=== PATIENT | male | born 1990 | race Hispanic/Latino ===

== ENCOUNTER 2020-10-22 15:01 | Inpatient (IN) | payer BC ==
[2020-10-22 20:07] LABS: Absolute Lymphocytes (CBC) 0.9 K/uL (0.7-4.9); Basophils % 0.2 % (0-1.3); Hematocrit 44.2 % (39.6-49.0); Lymphocytes % 12.6 % (15.3-44.8); MPV 7.8 fL (7.6-11.3); RBC Red Blood Cell Count 4.74 M/uL (4.33-5.43)
[2020-10-22] MEDS ORDERED: METHYLPREDNISOLONE 125 MG INJ ONE (20:13)
--- NOTE | 2020-10-22 20:13 | RAD REPORT ---
EXAM DESCRIPTION: RAD - Chest Single View - 10/22/2020 8:03 pm CLINICAL HISTORY: DYSPNEA COMPARISON: CHEST SINGLE VIEW dated 01/03/2013 FINDINGS: Severe widespread bilateral airspace disease The heart size is within normal limits.No acu te osseous abnormality. No significant pleural effusions or pneumothorax. IMPRESSION: Severe bilateral airspace disease concerning for multifocal pneumonia, including Covid-1 9.
[2020-10-22 20:21] LABS: Protime INR 1.33
--- NOTE | 2020-10-22 20:59 | ER ---
Nurse's Notes [facility] Name: Germán Francisco III Age: 29 yrs Sex: Male : 1990 Arrival Date: 10/22/2020 Time: 15:05 Bed 18 Private MD: Diagnosis: Coronavirus infection, unspecified;Hypoxia;Viral pneumonia, unspecified Presentation: 10/22 15:28 Chief complaint: Patient states: Covid positive for 8 days. Symptoms for about 2 weeks. ll1 Started having SOB and bad coughing fits for 3 days. No fever. + diarrhea. Coronavirus screen: Client denies travel out of the [place] in the last 14 days. cough unrelated to allergies, difficulty breathing, shortness of breath, Client presents with at least one sign or symptom that may indicate coronavirus-19. Standard/surgical mask placed on the client. Ebola Screen: Patient denies travel to an Ebola-affected area in the 21 days before illness onset. No symptoms or risks identified at this time. Initial Sepsis Screen: Does the patient meet any 2 criteria? No. Patient's initial sepsis screen is negative. Does the patient have a suspected source of infection? Yes: Productive cough/pneumonia. Risk Assessment: Do you want to hurt yourself or someone else? Patient reports no desire to harm self or others. Onset of symptoms was October 09, 2020. 15:28 Method Of Arrival: Ambulatory [facility] 15:28 Acuity: SHEILA 3 ll1 Historical: - Allergies: 15:30 No Known Allergies; ll1 - PMHx: 15:30 None; ll1 - PSHx: 15:30 None; ll1 - Immunization history:: Client reports having NOT received the Covid vaccine. Flu vaccine is not up to date. - Social history:: Smoking status: Patient denies any tobacco usage or history of. Assessment: 20:05 Reassessment: patient reportedly dropped to 70% o2 sat upon walking to room per ER ms4 tech. patient placed on 4 L nc. patient reports he feels extremely short of breath when ambulating. 21:54 Reassessment: Reilly OPTO MECHANICAL TECHNICIAN aware of Lactic and Procal labs. No orders received at this time. kg Will continue to monitor. . Vital Signs: 15:28 BP 131 / 83; Pulse 80; Resp 20; Temp 97.0; Pulse Ox 95% on R/A; Weight 104.33 kg; ll1 Height 5 ft. 9 in. (175.26 cm); Pain 0/10; 20:05 BP 112 / 71; Pulse 94; Resp 20; Pulse Ox 96% 4 lpm ; Pain 0/10; ms4 15:28 Body Mass Index 33.96 (104.33 kg, 175.26 cm) ll1 ED Course: 15:05 Patient arrived in ED. ds1 15:30 Triage completed. ll1 15:30 Arm band placed on. ll1 19:14 Nayeli Grace FNP-C is PHCP. kb 19:14 Vern Johnson MD is Attending Physician. kb 19:58 BMP Sent. ms4 19:58 Blood Culture Adult (2) Sent. ms4 19:58 C-Reactive Protein Sent. ms4 19:58 CBC with Diff Sent. ms4 19:58 D-Dimer Sent. ms4 20:00 Inserted saline lock: 22 gauge in right antecubital area, using aseptic technique. oe Blood collected. 20:03 Chest Single View XRAY In Process Unspecified. EDMS 20:14 Patient has correct armband on for positive identification. Bed in low position. Call mh5 light in reach. Side rails up X 1. bus driver/monitor on. Pulse ox on. NIBP on. 20:58 Sky Mclaughlin MD is Hospitalizing Provider. kb 21:06 Kenyatta Vizcarra, RN is Primary Nurse. kg Administered Medications: 19:57 Drug: SOLU-Medrol (methylPrednisoLONE) 125 mg Route: IVP; Site: right antecubital; ms4 Outcome: 20:58 Decision to Hospitalize by Provider. kb 10/26 15:48 Patient left the ED. iw Signatures: Dispatcher [employer] EDMS Nayeli Grace FNP-C FNP-Viridiana Austin ds1 Angela Man, ASYA SKY Ronnell Tracey [facility] Marlen Sarmiento RN RN ll1 Kenyatta Vizcarra, RN ASYA kg Eloise Biggs RN RN ms4
--- NOTE | 2020-10-22 20:59 | EDPHYS ---
Physician Documentation [facility] Name: Germán Francisco III Age: 29 yrs Sex: Male : 1990 Arrival Date: 10/22/2020 Time: 15:05 Bed 18 Private MD: ED Physician Vern Johnson HPI: 10/22 20:09 This 29 yrs old Male presents to ER via Ambulatory with complaints of Chest kb Pain, Shortness Of Breath - Covid +. 20:09 The patient or guardian reports cough, that is intermittent, described as moderate, kb with no sputum. Onset: The symptoms/episode began/occurred yesterday. Severity of symptoms: At their worst the symptoms were moderate, in the emergency department the symptoms are unchanged. Modifying factors: The symptoms are alleviated by nothing, the symptoms are aggravated by nothing. Associated signs and symptoms: The patient has no apparent associated signs or symptoms. The patient has not experienced similar symptoms in the past. The patient has not recently seen a physician. Cough congestion approximately 10 days ago, was tested positive with Covid on Tuesday last week. States his symptoms have been mild up until yesterday. Comes in complaining of increased shortness of breath and coughing fits.. Historical: - Allergies: 15:30 No Known Allergies; ll1 - PMHx: 15:30 None; ll1 - PSHx: 15:30 None; ll1 - Immunization history:: Client reports having NOT received the Covid vaccine. Flu vaccine is not up to date. - Social history:: Smoking status: Patient denies any tobacco usage or history of. ROS: 20:09 Constitutional: Negative for fever, chills, and weight loss. kb 20:09 Respiratory: Positive for cough, with no reported sputum, dyspnea on exertion, shortness of breath, Negative for hemoptysis, orthopnea, pleurisy, wheezing. 20:09 All other systems are negative. Exam: 20:08 Constitutional: This is a well developed, well nourished patient who is awake, alert, kb and in no acute distress. Head/Face: Normocephalic, atraumatic. ENT: Moist Mucous membranes Cardiovascular: Regular rate and rhythm with a normal S1 and S2. No gallops, murmurs, or rubs. No pulse deficits. Abdomen/GI: Soft, non-tender. No distention Skin: Warm, dry with normal turgor. Normal color. MS/ Extremity: Pulses equal, no cyanosis. Neurovascular intact. Full, normal range of motion. Neuro: Awake and alert, GCS 15, oriented to person, place, time, and situation. Moves all extremities. Normal gait. Psych: Awake, alert, with orientation to person, place and time. Behavior, mood, and affect are within normal limits. 20:08 Respiratory: mild respiratory distress is noted, Respirations: tachypnea, Breath sounds: are clear throughout. Vital Signs: 15:28 BP 131 / 83; Pulse 80; Resp 20; Temp 97.0; Pulse Ox 95% on R/A; Weight 104.33 kg; ll1 Height 5 ft. 9 in. (175.26 cm); Pain 0/10; 20:05 BP 112 / 71; Pulse 94; Resp 20; Pulse Ox 96% 4 lpm ; Pain 0/10; ms4 15:28 Body Mass Index 33.96 (104.33 kg, 175.26 cm) ll1 MDM: 19:14 Patient medically screened. kb 19:45 Data reviewed: vital signs, nurses notes. Data interpreted: Pulse oximetry: on room air kb is 71 %. Interpretation: hypoxia. Plan: O2 by NC applied. ED course: o2 sat increased to 94% on 4L O2 via NC. 19:49 Counseling: I had a detailed discussion with the patient and/or guardian regarding: the kb historical points, exam findings, and any diagnostic results supporting the discharge/admit diagnosis, lab results, radiology results, the need for further work-up and treatment in the hospital. 19:49 Physician consultation: Reilly MIJARES was contacted at 19:49, regarding admission, kb and will see patient in ED. 10/22 19:23 Order name: BMP kb 10/22 19:23 Order name: Blood Culture Adult (2) kb 10/22 19:23 Order name: C-Reactive Protein kb 10/22 19:23 Order name: CBC with Diff kb 10/22 19:23 Order name: D-Dimer kb 10/22 19:23 Order name: Ferritin; Complete Time: 23:58 kb 10/22 19:23 Order name: LFT's; Complete Time: 23:58 kb 10/22 19:23 Order name: Lactate; Complete Time: 20:39 kb 04 19:23 Order name: Lipase; Complete Time: 23:58 kb 10/22 19:23 Order name: PT-INR; Complete Time: 20:30 kb 10/22 19:23 Order name: Procalcitonin; Complete Time: 21:38 kb 10/22 19:23 Order name: Ptt, Activated; Complete Time: 20:30 kb 10/22 19:23 Order name: Troponin (emerg Dept Use Only); Complete Time: 23:58 kb 10/22 19:23 Order name: Basic Metabolic Panel; Complete Time: 23:58 EDMS 10/22 19:23 Order name: Blood Culture; Complete Time: 10:54 EDMS 10/22 19:23 Order name: C-Reactive Protein; Complete Time: 23:58 EDMS 10/22 19:23 Order name: CBC with Automated Diff; Complete Time: 20:16 EDMS 10/22 19:23 Order name: D-Dimer; Complete Time: 20:30 EDMS 04 23:34 Order name: Lactate Sepsis 2 HR Follow-up; Complete Time: 23:37 EDMS 08/05 06:06 Order name: CBC with Automated Diff; Complete Time: 20:49 EDMS 08/05 06:28 Order name: Comprehensive Metabolic Panel; Complete Time: 20:49 EDMS 08/05 06:28 Order name: C-Reactive Protein; Complete Time: 20:49 EDMS 08/05 06:28 Order name: Magnesium; Complete Time: 20:49 EDMS 08/05 06:28 Order name: Ferritin; Complete Time: 20:49 EDMS 08/05 06:38 Order name: D-Dimer; Complete Time: 20:49 EDMS 08/05 13:11 Order name: Manual Differential; Complete Time: 20:49 EDMS 08/06 05:40 Order name: CBC with Automated Diff; Complete Time: 10:54 EDMS 08/06 05:54 Order name: Comprehensive Metabolic Panel; Complete Time: 10:54 EDMS 08/06 05:54 Order name: C-Reactive Protein; Complete Time: 10:54 EDMS 08/06 05:54 Order name: Magnesium; Complete Time: 10:54 EDMS 10/22 19:23 Order name: EKG; Complete Time: 19:24 kb 10/22 19:23 Order name: Cardiac monitoring; Complete Time: 19:58 kb 10/22 19:23 Order name: Droplet/Contact Precautions; Complete Time: 19:58 kb 10/22 19:23 Order name: EKG - Nurse/Tech; Complete Time: 19:58 kb 10/22 19:23 Order name: IV Start; Complete Time: 19:58 kb 10/22 19:23 Order name: Labs collected and sent; Complete Time: 19:58 kb 10/22 19:23 Order name: O2 Per Protocol; Complete Time: 19:58 kb 10/22 19:23 Order name: O2 Sat Monitoring; Complete Time: 19:58 kb 10/22 19:23 Order name: Chest Single View XRAY; Complete Time: 20:16 kb 10/22 20:31 Order name: CT Chest For PE Angio kb 10/23 11:51 Order name: CT; Complete Time: 20:49 EDMS 10/24 05:54 Order name: Ferritin; Complete Time: 10:54 EDMS 10/24 08:36 Order name: D-Dimer; Complete Time: 10:54 EDMS 10/25 06:09 Order name: CBC with Automated Diff; Complete Time: 10:54 EDMS 07 06:17 Order name: D-Dimer; Complete Time: 10:54 EDMS 07 06:28 Order name: Comprehensive Metabolic Panel; Complete Time: 10:54 EDMS 07 06:28 Order name: Magnesium; Complete Time: 10:54 EDMS 10/25 06:28 Order name: Ferritin; Complete Time: 10:54 EDMS 10/25 06:29 Order name: C-Reactive Protein; Complete Time: 10:54 EDMS 08 05:55 Order name: CBC without Diff; Complete Time: 09:37 EDMS 10/26 06:18 Order name: Comprehensive Metabolic Panel; Complete Time: 09:37 EDMS 10/26 06:18 Order name: C-Reactive Protein; Complete Time: 09:37 EDMS 10/26 06:18 Order name: Ferritin; Complete Time: 09:37 EDMS 10/26 11:10 Order name: US; Complete Time: 11:17 EDMS Administered Medications: 19:57 Drug: SOLU-Medrol (methylPrednisoLONE) 125 mg Route: IVP; Site: right antecubital; ms4 Disposition: 10/24 22:47 Co-signature as Attending Physician, Vern Johnson MD. pkl Disposition Summary: 10/22/20 20:58 Hospitalization Ordered Hospitalization Status: Inpatient Admission kb Provider: Sky Mclaughlin Condition: Fair kb Problem: new kb Symptoms: are unchanged kb Bed/Room Type: Standard kb Location: [facility] ER HOLD(10/22/20 23:46) cg Room Assignment: ERHOLD-(10/22/20 23:46) cg Diagnosis - Coronavirus infection, unspecified kb - Hypoxia kb - Viral pneumonia, unspecified kb Forms: - Medication Reconciliation Form kb - SBAR form kb Signatures: Dispatcher [employer] EDAZ Nayeli Grace, COOLER MAN-C COOLER MAN-Vern Garcia MD MD pkl Reilly Cantu COOLER MAN-C COOLER MAN-Cla1 Della Ledbetter, RN RN cg Marlen Sarmiento RN RN ll1 Eloise Biggs RN RN ms4 Corrections: (The following items were deleted from the chart) 10/22 20:03 19:15 Chest Pa And Lat (2 Views)+RAD.RAD.BRZ ordered. EDAZ EDMS 23:46 20:58 Telemetry/MedSurg (Inpatient) kb cg 23:46 20:58 kb cg 23:46 23:46 cg cg
--- NOTE | 2020-10-22 22:25 | P.HP ---
Certification for Inpatient Patient admitted to: Inpatient With expected LOS: >2 Midnights Patient will require the following post-hospital care: None Practitioner: I am a practitioner with admitting privileges, knowledge of patient current condition, hospital course, and medical plan of care. Services: Services provided to patient in accordance with Admission requirements found in Title 42 Section 412.3 of the Code of Federal Regulations Patient History Date of Service: 10/22/20 Primary Care Provider: None Reason for admission: COVID-19 pneumonia History of Present Illness: 29-year-old male presents the emergency department for shortness of breath. Patient reports testing positive for Covid on 10/14/2020 with pr ogressive shortness of breath since then. Patient was evaluated in the emergency department, labs were significant for white blood cell count 7 D-dimer 814 procalcitonin 0.8 lactic acid 2.6, patient was hypoxic on room air saturating between 70s and 80s, patient nonvaccinated. Patient tolerating nasal cannula at 2 L well this time, ED provider wishes to admit for further evaluation and management of COVID-19 pneumonia with hypoxia. - Past Medical/Surgical History -: None -: None Psychosocial/ Personal History: Lives with and children - Family History Family History: Reviewed- Non-Contributory - Social History Smoking Status: Never smoker Alcohol use: Yes CD- Drugs: No Caffeine use: Yes Place of Residence: Home Review of Systems General: Fever, Chills, Weakness, Malaise Respiratory: Cough, Dry, Shortness of Breath Physical Examination - Physical Exam General: Alert, In no apparent distress, Oriented x3 HEENT: Atraumatic, PERRLA, Mucous membr. moist/pink, EOMI, Sclerae nonicteric Neck: Supple, 2+ carotid pulse no bruit, No LAD, Without JVD or thyroid abnormality Respiratory: Normal air movement, Diminished Cardiovascular: Regular rate/rhythm, Normal S1 S2 Gastrointestinal: Normal bowel sounds, No tenderness Musculoskeletal: No tenderness Integumentary: No rashes Neurological: Normal gait, Normal speech, Normal strength at 5/5 x4 extr, Normal tone, Normal affect Lymphatics: No axilla or inguinal lymphadenopathy - Studies Laboratory Data (last 24 hrs) 10/22/20 19:50: PT 15.3 H, INR 1.33, APTT 30.8 10/22/20 19:50: WBC 7.00, Hgb 14.6, Hct 44.2, Plt Count 450 H Assessment and Plan - Plan Assessment: Acute hypoxic respiratory failure secondary to COVID-19 pneumonia Plan: Acute hypoxic respiratory failure secondary to COVID-19 pneumonia: Continue with IV steroids, oral supplements, supplemental oxygen as needed, pulmonology consulted. Daily room air saturations. Patient with significant pneumonia on chest x-ray will likely require multiple days of hospitalization. Appreciate further input from pulmonology. Trend CRP/ferritin levels. DVT PPX: Lovenox Code status: Full Discharge Plan: Home Plan to discharge in: Greater than 2 days - Advance Directives Does patient have a Living Will: No Does patient have a Durable POA for Healthcare: No - Code Status/Comfort Care Code Status Assessed: Yes (Full code) Critical Care: No Time Spent Managing Pts Care (In Minutes): 55
[2020-10-22 23:12] LABS: ALT/SGPT 188 U/L (12-78); AST/SGOT 107 U/L (15-37); Alkaline Phosphatase 232 U/L (45-117); BUN Blood Urea Nitrogen 11 mg/dL (7-18); Bicarbonate 25 mmol/L (21-32); Bilirubin Direct 0.1 mg/dL (0-0.2); Bilirubin Total 0.4 mg/dL (0.2-1.0); Glucose Level 99 mg/dL (74-106); Lipase 169 U/L (73-393); Potassium 4.5 mmol/L (3.5-5.1); Protein, Total 8.4 g/dL (6.4-8.2); Sodium Level 138 mmol/L (136-145); Troponin (Emerg Dept Use Only) < 0.02 ng/mL (0.0-0.045)
[2020-10-22 23:53] LABS: Ferritin 2373.4 ng/mL (26-388)
[2020-10-23 00:25] VITALS: BMI 34.0
[2020-10-23] MEDS ORDERED: MELATONIN 5 MG TABLET PO PRN (01:42)
[2020-10-23] MEDS ORDERED: ONDANSETRON 4 MG/2 ML VIAL IV PRN (01:42)
[2020-10-23] MEDS ORDERED: ACETAMINOPHEN 500 MG TAB PO PRN (01:42)
[2020-10-23] MEDS ORDERED: BENZONATATE 100 MG CAP PO PRN (01:42)
[2020-10-23 06:00] LABS: Absolute Lymphocytes (CBC) 0.7 K/uL (0.7-4.9); Basophils % 0.2 % (0-1.3); Hematocrit 39.4 % (39.6-49.0); Lymphocytes % 16.5 % (15.3-44.8); MPV 7.7 fL (7.6-11.3); RBC Red Blood Cell Count 4.27 M/uL (4.33-5.43)
[2020-10-23 06:28] LABS: ALT/SGPT 147 U/L (12-78); AST/SGOT 74 U/L (15-37); Albumin 2.6 g/dL (3.4-5.0); Alkaline Phosphatase 216 U/L (45-117); BUN Blood Urea Nitrogen 16 mg/dL (7-18); Bicarbonate 24 mmol/L (21-32); Bilirubin Total 0.3 mg/dL (0.2-1.0); Ferritin 1832.1 ng/mL (26-388); Glucose Level 127 mg/dL (74-106); Magnesium 1.9 mg/dL (1.8-2.4); Potassium 4.3 mmol/L (3.5-5.1); Protein, Total 7.7 g/dL (6.4-8.2); Sodium Level 138 mmol/L (136-145)
[2020-10-23] MEDS ORDERED: BENZONATATE 100 MG CAP PO ONE (06:38)
--- NOTE | 2020-10-23 06:49 | P.PN ---
Subjective Date of Service: 10/23/20 Primary Care Provider: None Chief Complaint: COVID-19 pneumonia Subjective: Improving (feeling a little better since placed on O2, hasnt ambulated much.) Review of Systems 10-point ROS is otherwise unremarkable Physical Examination - Vital Signs Temperature: 98.7 F Blood Pressure: 122/77 Pulse: 64 Respirations: 26 Pulse Ox (%): 93 - Studies Laboratory Data (last 24 hrs) 10/22/20 19:50: PT 15.3 H, INR 1.33, APTT 30.8 10/22/20 19:50: WBC 7.00, Hgb 14.6, Hct 44.2, Plt Count 450 H 10/22/20 19:50: Sodium 138, Potassium 4.5, BUN 11, Creatinine 0.96, Glucose 99, Total Bilirubin 0.4, AST 107 H, ALT 188 H, Alkaline Phosphatase 232 H, Lipase 169 Assessment & Plan Physician Review Additional Text: Physical Exam General: Alert, In no apparent distress, Oriented x3 HEENT: normal conjunctiva, sclera anicteric Respiratory: slightly labored respirations on 4L NC Cardiovascular: Regular rate/rhythm, no edema Gastrointestinal: soft, nontender, nondistended Integumentary: No rashes Assessment and Plan Acute hypoxic respiratory failure secondary to COVID-19 pneumonia continue steroids, oral supplements, supplemental oxygen pulm consulted daily room air sats significant pneumonia on CXR CTA with small filling defect but do not suspect it is due to true PE wean O2 as tolerated trend CRP/ferritin - significantly elevated VTE: lovenox possible dc home in next 1-2 days on home O2 Time Spent Managing Pts Care (In Minutes): 35
[2020-10-23] MEDS: ASPIRIN EC 81 MG TAB PO SCH (10:22)
[2020-10-23] MEDS: METHYLPREDNISOLONE 40 MG INJ IV SCH ×3 (10:22→21:00)
[2020-10-23] MEDS: ZINC SULFATE 220 MG CAP PO SCH (10:23)
[2020-10-23] MEDS: THIAMINE HCL 100 MG TABLET PO SCH (10:23)
[2020-10-23] MEDS: ASCORBIC ACID 500 MG TABLET PO SCH ×4 (10:23→21:01)
[2020-10-23] MEDS: VITAMIN D 1000 UNIT TAB PO SCH (10:23)
[2020-10-23] MEDS: ENOXAPARIN 40 MG/0.4 ML SQ SCH (10:23)
[2020-10-23] MEDS: IVERMECTIN 3 MG TABLET PO SCH (10:23)
[2020-10-23] MEDS ORDERED: METHYLPREDNISOLONE 125 MG INJ ONE ×3 (10:30→21:14)
[2020-10-23] MEDS ORDERED: ZINC SULFATE 220 MG CAP ONE (10:30)
[2020-10-23] MEDS ORDERED: THIAMINE HCL 100 MG TABLET ONE (10:30)
[2020-10-23] MEDS ORDERED: ASPIRIN EC 81 MG TAB PO ONE (10:30)
[2020-10-23] MEDS ORDERED: ASCORBIC ACID 500 MG TABLET ONE ×4 (10:31→21:15)
[2020-10-23] MEDS ORDERED: ENOXAPARIN 40 MG/0.4 ML SQ ONE (10:31)
[2020-10-23] MEDS ORDERED: VITAMIN D 1000 UNIT TAB ONE (10:31)
--- NOTE | 2020-10-23 11:51 | RAD REPORT ---
EXAM DESCRIPTION: CT Angiography Chest With Intravenous Contrast CLINICAL HISTORY: The patient is 29 years old and is Male; SOB TECHNIQUE: Axial computed tomographic angiography images of the chest with intravenous contrast. T his CT exam was performed using one or more of the following dose reduction techniques: automated e xposure control, adjustment of the mA and/or kV according to patient size, and/or use of iterative re construction technique. MIP reconstructed images were created and reviewed. Oblique reformatted images were created and reviewed. DLP: 545 mGy*cm COMPARISON: Chest radiograph of the same day. FINDINGS: PULMONARY ARTERIES: Unremarkable. No pulmonary embolism. AORTA: No acute findings. No thoracic aortic aneurysm. LUNGS: Advanced bilateral groundglass opacities with bilateral lower lobe consolidations. Interlob ular septal thickening. PLEURAL SPACE: Unremarkable. No significant effusion. No pneumothorax. HEART: No cardiomegaly. No significant pericardial effusion. No evidence of RV dysfunction. BONES/JOINTS: No acute fracture. No dislocation. SOFT TISSUES: Unremarkable. LYMPH NODES: Bihilar lymphadenopathy. Mildly prominent prevascular lymph nodes. IMPRESSION: 1. No pulmonary embolism. 2. Commonly reported imaging features of COVID-19 pneumonia are present. Other processes such as in fluenza pneumonia and organizing pneumonia, as can be seen with drug toxicity and connective tissue d isease, can cause similar imaging pattern. PneTyp. 3. Bihilar and mediastinal lymphadenopathy, likely reactive. Electronically signed by: Flip Gaxiola DO 10/22/2020 11:26 PM CDT Due to temporary technical issues with the PACS/Fluency reporting system, reports are being signed by the in house radiologist without review as a courtesy to ensure prompt reporting. The interpreting r adiologist is fully responsible for the content of the report.
[2020-10-23 13:10] LABS: Blood Morphology Comment NOT SEEN (NOT SEEN); Platelet Estimate ADEQ
--- NOTE | 2020-10-23 14:41 | P.CNS ---
Primary Care Provider: None Chief Complaint: COVID-19 pneumonia Allergies No Known Allergies Allergy (Unverified 10/23/20 01:42) Home Medications: NK [No Home Meds] 10/23/20 - Past Medical/Surgical History Diabetic: No -: None -: None Psychosocial/ Personal History: Lives with and children - Social History Alcohol use: Yes CD- Drugs: No Caffeine use: Yes Place of Residence: Home Physical Examination Temp Pulse Resp BP Pulse Ox 98.7 F 64 26 H 122/77 93 10/23/20 14:37 10/23/20 14:37 10/23/20 14:37 10/23/20 14:37 10/23/20 14:37 Laboratory Data (last 24 hrs) 10/22/20 19:50: PT 15.3 H, INR 1.33, APTT 30.8 10/22/20 19:50: WBC 7.00, Hgb 14.6, Hct 44.2, Plt Count 450 H 10/22/20 19:50: Sodium 138, Potassium 4.5, BUN 11, Creatinine 0.96, Glucose 99, Total Bilirubin 0.4, AST 107 H, ALT 188 H, Alkaline Phosphatase 232 H, Lipase 169
--- NOTE | 2020-10-23 14:45 | P.CNS ---
Date of Consult: 10/23/20 (pt agred to TV) Reason for Consult: REsp failure from COVID Primary Care Provider: None Chief Complaint: COVID-19 pneumonia History of Present Illness: AGe 29 aw resp failure from COVID. Hypoxic onnasal cannula O2 Allergies No Known Allergies Allergy (Unverified 10/23/20 01:42) Home Medications: NK [No Home Meds] 10/23/20 - Past Medical/Surgical History Diabetic: No -: None -: None Psychosocial/ Personal History: Lives with and children - Social History Alcohol use: Yes CD- Drugs: No Caffeine use: Yes Place of Residence: Home Review of Systems General: Weakness Respiratory: Shortness of Breath Physical Examination Temp Pulse Resp BP Pulse Ox 98.7 F 64 26 H 122/77 93 10/23/20 14:37 10/23/20 14:37 10/23/20 14:37 10/23/20 14:37 10/23/20 14:37 General: Alert, Cooperative, Mild distress Laboratory Data (last 24 hrs) 10/22/20 19:50: PT 15.3 H, INR 1.33, APTT 30.8 10/22/20 19:50: WBC 7.00, Hgb 14.6, Hct 44.2, Plt Count 450 H 10/22/20 19:50: Sodium 138, Potassium 4.5, BUN 11, Creatinine 0.96, Glucose 99, Total Bilirubin 0.4, AST 107 H, ALT 188 H, Alkaline Phosphatase 232 H, Lipase 169 - Problems (1) Pneumonia due to COVID-19 virus Current Visit: Yes Status: Acute Plan: AGe 29 AW resp failure from COVID/CT rev/ LAbs reviewed/ NC/ Doesnot qualify for Barcitnib/
[2020-10-23] MEDS ORDERED: ACETAMINOPHEN 500 MG TAB ONE (17:52)
[2020-10-24 05:22] LABS: Absolute Lymphocytes (CBC) 1.2 K/uL (0.7-4.9); Basophils % 0.1 % (0-1.3); Hematocrit 39.9 % (39.6-49.0); Lymphocytes % 10.7 % (15.3-44.8); MPV 8.3 fL (7.6-11.3)
[2020-10-24 05:54] LABS: ALT/SGPT 235 U/L (12-78); AST/SGOT 140 U/L (15-37); Albumin 2.7 g/dL (3.4-5.0); Alkaline Phosphatase 216 U/L (45-117); BUN Blood Urea Nitrogen 17 mg/dL (7-18); Bicarbonate 26 mmol/L (21-32); Bilirubin Total 0.3 mg/dL (0.2-1.0); Ferritin 1863.3 ng/mL (26-388); Glucose Level 137 mg/dL (74-106); Magnesium 1.8 mg/dL (1.8-2.4); Potassium 4.2 mmol/L (3.5-5.1); Protein, Total 7.5 g/dL (6.4-8.2); Sodium Level 138 mmol/L (136-145)
--- NOTE | 2020-10-24 07:23 | P.PN ---
Subjective Date of Service: 10/24/20 Primary Care Provider: None Chief Complaint: COVID-19 pneumonia Subjective: No new changes (feeling slightly better, on 4L throughout day yesterday, placed on 15L overnight. 92-96% on 15L . appetite ok. hypoxic/dyspneic with minimal movement) Review of Systems 10-point ROS is otherwise unremarkable Physical Examination - Vital Signs Temperature: 98.8 F Blood Pressure: 119/70 Pulse: 59 Respirations: 28 Pulse Ox (%): 91 Assessment & Plan Physician Review Additional Text: Physical Exam General: Alert, In no apparent distress, Oriented x3 HEENT: normal conjunctiva, sclera anicteric Respiratory: slightly labored respirations on 5L NC Cardiovascular: Regular rate/rhythm, no edema Gastrointestinal: soft, nontender, nondistended Integumentary: No rashes Assessment and Plan Acute hypoxic respiratory failure secondary to COVID-19 pneumonia elevated LFTs continue steroids, oral supplements, supplemental oxygen pulm consulted HFNC overnight, ordered baricitinib, per pulmonology daily room air sats significant pneumonia on CXR wean O2 as tolerated trend CRP/ferritin - significantly elevated but improving VTE: lovenox possible dc home in next 1-2 days on home O2 Time Spent Managing Pts Care (In Minutes): 35
[2020-10-24] MEDS: ENOXAPARIN 40 MG/0.4 ML SQ SCH (09:00)
[2020-10-24] MEDS: ZINC SULFATE 220 MG CAP PO SCH (09:00)
[2020-10-24] MEDS: METHYLPREDNISOLONE 40 MG INJ IV SCH ×3 (09:00→20:52)
[2020-10-24] MEDS: VITAMIN D 1000 UNIT TAB PO SCH (09:00)
[2020-10-24] MEDS: THIAMINE HCL 100 MG TABLET PO SCH (09:00)
[2020-10-24] MEDS: ASPIRIN EC 81 MG TAB PO SCH (09:00)
[2020-10-24] MEDS: ASCORBIC ACID 500 MG TABLET PO SCH ×4 (09:00→20:52)
[2020-10-24] MEDS ORDERED: ZINC SULFATE 220 MG CAP ONE (09:30)
[2020-10-24] MEDS ORDERED: ASPIRIN EC 81 MG TAB PO ONE (09:30)
[2020-10-24] MEDS ORDERED: METHYLPREDNISOLONE 125 MG INJ ONE ×2 (09:30→13:54)
[2020-10-24] MEDS ORDERED: THIAMINE HCL 100 MG TABLET ONE (09:30)
[2020-10-24] MEDS ORDERED: ENOXAPARIN 40 MG/0.4 ML SQ ONE (09:31)
[2020-10-24] MEDS ORDERED: VITAMIN D 1000 UNIT TAB ONE (09:31)
[2020-10-24] MEDS ORDERED: ASCORBIC ACID 500 MG TABLET ONE ×4 (09:31→20:15)
--- NOTE | 2020-10-24 13:16 | P.PN ---
Subjective Date of Service: 10/24/20 Primary Care Provider: None Chief Complaint: COVID-19 pneumonia Subjective: Worsening (condition worseing) Review of Systems General: Weakness Respiratory: Shortness of Breath Physical Examination - Vital Signs Temperature: 98.1 F Blood Pressure: 124/74 Pulse: 57 Respirations: 28 Pulse Ox (%): 96 Assessment & Plan - Problems (Diagnosis) (1) Pneumonia due to COVID-19 virus Current Visit: Yes Status: Acute Plan: Worse add Ann schuler
[2020-10-24] MEDS ORDERED: ACETAMINOPHEN 500 MG TAB ONE (13:22)
[2020-10-24] MEDS: BARICITINIB 2 MG TABLET PO SCH (14:00)
[2020-10-24] MEDS: RIVAROXABAN 20 MG TABLET PO SCH (17:00)
[2020-10-24] MEDS ORDERED: METHYLPREDNISOLONE 40 MG INJ ONE (20:15)
[2020-10-25 06:06] LABS: Absolute Lymphocytes (CBC) 1.1 K/uL (0.7-4.9); Basophils % 0.2 % (0-1.3); Lymphocytes % 10.1 % (15.3-44.8); MPV 8.2 fL (7.6-11.3); RBC Red Blood Cell Count 4.46 M/uL (4.33-5.43)
[2020-10-25 06:28] LABS: ALT/SGPT 246 U/L (12-78); AST/SGOT 103 U/L (15-37); Albumin 2.7 g/dL (3.4-5.0); Alkaline Phosphatase 178 U/L (45-117); BUN Blood Urea Nitrogen 18 mg/dL (7-18); Bicarbonate 28 mmol/L (21-32); Bilirubin Total 0.3 mg/dL (0.2-1.0); Ferritin 1212.4 ng/mL (26-388); Glucose Level 141 mg/dL (74-106); Potassium 4.1 mmol/L (3.5-5.1); Protein, Total 7.1 g/dL (6.4-8.2); Sodium Level 139 mmol/L (136-145)
[2020-10-25] MEDS: ZINC SULFATE 220 MG CAP PO SCH (09:00)
[2020-10-25] MEDS: ASCORBIC ACID 500 MG TABLET PO SCH ×4 (09:00→21:30)
[2020-10-25] MEDS: ASPIRIN EC 81 MG TAB PO SCH (09:00)
[2020-10-25] MEDS: IVERMECTIN 3 MG TABLET PO SCH (09:00)
[2020-10-25] MEDS: VITAMIN D 1000 UNIT TAB PO SCH (09:00)
[2020-10-25] MEDS: METHYLPREDNISOLONE 40 MG INJ IV SCH ×2 (09:00→17:00)
[2020-10-25] MEDS: BARICITINIB 2 MG TABLET PO SCH (09:00)
[2020-10-25] MEDS: THIAMINE HCL 100 MG TABLET PO SCH (09:00)
[2020-10-25] MEDS ORDERED: ZINC SULFATE 220 MG CAP ONE (09:14)
[2020-10-25] MEDS ORDERED: METHYLPREDNISOLONE 125 MG INJ ONE (09:14)
[2020-10-25] MEDS ORDERED: ASPIRIN 81 MG CHEWABLE TABLET ONE (09:14)
[2020-10-25] MEDS ORDERED: THIAMINE HCL 100 MG TABLET ONE (09:54)
[2020-10-25] MEDS ORDERED: ASCORBIC ACID 500 MG TABLET ONE ×4 (09:55→20:45)
[2020-10-25] MEDS ORDERED: VITAMIN D 1000 UNIT TAB ONE (09:55)
--- NOTE | 2020-10-25 13:25 | P.PN ---
Subjective Date of Service: 10/25/20 Primary Care Provider: None Chief Complaint: COVID-19 pneumonia feeling better, able to take bigger breaths now. has been taking NC on and off due to discomfort of NC. <Ariana Ruggiero - Last Filed: 10/25/20 13:20> Date of Service: 10/25/20 <Sky Mclaughlin - Last Filed: 10/25/20 15:17> Physical Examination - Vital Signs Temperature: 97.9 F Blood Pressure: 133/81 Pulse: 47 Respirations: 21 Pulse Ox (%): 93 <Ariana Ruggiero - Last Filed: 10/25/20 13:20> Assessment And Plan Physician Review Additional Text: Physical Exam General: alert, in no apparent distress, oriented x3 HEENT: normal conjunctiva, sclera anicteric Respiratory: mildly labored respirations, 93% on 4L NC Cardiovascular: regular rate/rhythm, no edema Gastrointestinal: soft, nontender, nondistended Integumentary: no rashes Assessment and Plan Acute hypoxic respiratory failure secondary to COVID-19 pneumonia elevated LFTs -decrease IV steroids -continue oral supplements, supplemental oxygen -pulm consulted -continue baricitinib -daily room air sats -significant pneumonia on CXR -wean O2 as tolerated -trend CRP/ferritin - significantly elevated but improving -consult respiratory and clinical social worker to discharge patient with home oxygen VTE: xarelto possible dc home tomorrow on home O2 <Ariana Ruggiero - Last Filed: 10/25/20 13:20> Physician Review Additional Text: Patient seen and examined at bedside this morning with Ariana Ruggiero Plan of care discussed as noted above. required HFNC temporarily overnight. 88-94% on 4L NC inflammatory markers improving, continue baricitinib, reduce steroid dosage anticipate dc home tomorrow with home O2 if stable/improves Gen: NAD, CV: regular rate/rhythm, Pulm: tachypneic, on 4L NC; Abd: soft, NTND Neuro: normal affect/speech; no rash Time Spent Managing PTS Care (In Minutes): 35 <Sky Mclaughlin - Last Filed: 10/25/20 15:17>
[2020-10-25] MEDS: RIVAROXABAN 20 MG TABLET PO SCH (17:00)
[2020-10-25] MEDS ORDERED: METHYLPREDNISOLONE 40 MG INJ ONE (17:49)
[2020-10-26] MEDS: METHYLPREDNISOLONE 40 MG INJ IV SCH ×2 (00:16→09:00)
[2020-10-26] MEDS ORDERED: METHYLPREDNISOLONE 40 MG INJ ONE ×2 (00:37→09:33)
[2020-10-26 05:47] LABS: Hematocrit 42.1 % (39.6-49.0); MPV 8.4 fL (7.6-11.3); RBC Red Blood Cell Count 4.56 M/uL (4.33-5.43)
[2020-10-26 06:16] LABS: AST/SGOT 92 U/L (15-37); Albumin 2.8 g/dL (3.4-5.0); Alkaline Phosphatase 160 U/L (45-117); BUN Blood Urea Nitrogen 18 mg/dL (7-18); Bicarbonate 28 mmol/L (21-32); Bilirubin Total 0.4 mg/dL (0.2-1.0); Ferritin 975.5 ng/mL (26-388); Glucose Level 168 mg/dL (74-106); Potassium 4.7 mmol/L (3.5-5.1); Protein, Total 6.9 g/dL (6.4-8.2); Sodium Level 140 mmol/L (136-145)
[2020-10-26 06:17] LABS: ALT/SGPT 306 U/L (12-78)
[2020-10-26] MEDS: ASCORBIC ACID 500 MG TABLET PO SCH ×2 (09:00→13:00)
[2020-10-26] MEDS: ASPIRIN EC 81 MG TAB PO SCH (09:00)
[2020-10-26] MEDS: VITAMIN D 1000 UNIT TAB PO SCH (09:00)
[2020-10-26] MEDS: ZINC SULFATE 220 MG CAP PO SCH (09:00)
[2020-10-26] MEDS: BARICITINIB 2 MG TABLET PO SCH (09:00)
[2020-10-26] MEDS: THIAMINE HCL 100 MG TABLET PO SCH (09:00)
[2020-10-26] MEDS ORDERED: ASCORBIC ACID 500 MG TABLET ONE ×2 (09:32→14:58)
[2020-10-26] MEDS ORDERED: ZINC SULFATE 220 MG CAP ONE (09:32)
[2020-10-26] MEDS ORDERED: VITAMIN D 1000 UNIT TAB ONE (09:33)
[2020-10-26] MEDS ORDERED: ASPIRIN EC 81 MG TAB PO ONE (09:33)
[2020-10-26] MEDS ORDERED: THIAMINE HCL 100 MG TABLET ONE (09:33)
[2020-10-26 10:36] VITALS: TEMP 98.1
--- NOTE | 2020-10-26 11:10 | RAD REPORT ---
EXAM DESCRIPTION: US - Abdomen Exam Limited - 10/26/2020 8:28 am CLINICAL HISTORY: elevated LFTs COMPARISON: <Comparisons> FINDINGS: The liver demonstrates diffuse fatty infiltration.No focal liver lesion or intrahepatic bi liary dilatation Negative for cholelithiasis or acute cholecystitis. No gallbladder wall thickening. No pericholecysti c fluid. IMPRESSION: Fatty liver. Negative for cholelithiasis or cholecystitis.
[2020-10-26 15:54] VITALS: BP 128/89; O2SAT 91
--- NOTE | 2020-10-26 19:04 | P.DS ---
Admission Date: 10/22/20 Discharge Date: 10/26/20 Primary Care Provider: None Disposition: ROUTINE DISCHARGE Discharge Condition: GOOD Reason for Admission: COVID-19 pneumonia Consultations: pulm: Dr. Newton Procedures: CXR 10/22/2020 CLINICAL HISTORY: DYSPNEA COMPARISON: CHEST SINGLE VIEW dated 01/03/2013 FINDINGS: Severe widespread bilateral airspace disease The heart size is within normal limits.No acute osseous abnormality. No significant pleural effusions or pneumothorax. IMPRESSION: Severe bilateral airspace disease concerning for multifocal pneumonia, including Covid-19. CTA 10/22/20 EXAM DESCRIPTION: CT Angiography Chest With Intravenous Contrast CLINICAL HISTORY: The patient is 29 years old and is Male; SOB TECHNIQUE: Axial computed tomographic angiography images of the chest with intravenous contrast. This CT exam was performed using one or more of the following dose reduction techniques: automated exposure control, adjustment of the mA and/or kV according to patient size, and/or use of iterative reconstruction technique. MIP reconstructed images were created and reviewed. Oblique reformatted images were created and reviewed. DLP: 545 mGy*cm COMPARISON: Chest radiograph of the same day. FINDINGS: PULMONARY ARTERIES: Unremarkable. No pulmonary embolism. AORTA: No acute findings. No thoracic aortic aneurysm. LUNGS: Advanced bilateral groundglass opacities with bilateral lower lobe consolidations. Interlobular septal thickening. PLEURAL SPACE: Unremarkable. No significant effusion. No pneumothorax. HEART: No cardiomegaly. No significant pericardial effusion. No evidence of RV dysfunction. BONES/JOINTS: No acute fracture. No dislocation. SOFT TISSUES: Unremarkable. LYMPH NODES: Bihilar lymphadenopathy. Mildly prominent prevascular lymph nodes. IMPRESSION: 1. No pulmonary embolism. 2. Commonly reported imaging features of COVID-19 pneumonia are present. Other processes such as influenza pneumonia and organizing pneumonia, as can be seen with drug toxicity and connective tissue disease, can cause similar imaging pattern. PneTyp. 3. Bihilar and mediastinal lymphadenopathy, likely reactive. U/S (10/26/20) EXAM DESCRIPTION: US - Abdomen Exam Limited - 10/26/2020 8:28 am CLINICAL HISTORY: elevated LFTs COMPARISON: <Comparisons> FINDINGS: The liver demonstrates diffuse fatty infiltration.No focal liver lesion or intrahepatic biliary dilatation Negative for cholelithiasis or acute cholecystitis. No gallbladder wall thickening. No pericholecystic fluid. IMPRESSION: Fatty liver. Negative for cholelithiasis or cholecystitis. Brief History of Present Illness: 29-year-old male presents the emergency department for shortness of breath. Patient reports testing positive for Covid on 10/14/2020 with progressive shortness of breath since then. Patient was evaluated in the emergency department, labs were significant for white blood cell count 7 D-dimer 814 procalcitonin 0.8 lactic acid 2.6, patient was hypoxic on room air saturating between 70s and 80s, patient nonvaccinated. Patient tolerating nasal cannula at 2 L well this time, ED provider wishes to admit for further evaluation and management of COVID-19 pneumonia with hypoxia. Hospital Course: Patient improved with treatment per COVID protocol. He maintained SpO2 >92% on 4L NC. He was able to ambulate well with minimal worsening hypoxia, tolerated his diet. He was discharged home with home oxygen. Discharged with prednisone, vitamin supplementation, tessalon perles, due to his COVID-19 infection. Follow up with pulmonolgist, Dr. Newton in 1 week. He was found to have elevated liver enzymes and imaging showed fatty liver. He admitted to binge drinking on the weekend. He was advised to quit alcohol, re- check liver panel in 3-4 days and follow up with PCP. Vital Signs/Physical Exam: General: Alert, Oriented x3 HEENT: EOMI, Sclerae nonicteric Respiratory: Diminished Cardiovascular: Regular rate/rhythm Gastrointestinal: No tenderness, non-distended Musculoskeletal: No tenderness Integumentary: No rashes Neurological: Normal speech, Normal tone Temp Pulse Resp BP Pulse Ox 98.1 F 52 21 H 128/89 93 10/26/20 12:00 10/26/20 12:00 10/26/20 12:00 10/26/20 12:00 10/26/20 12:00 Laboratory Data at Discharge: WBC 11.80 K/uL (4.3-10.9) H 10/26/20 05:19 Hgb 14.3 g/dL (13.6-17.9) 10/26/20 05:19 Hct 42.1 % (39.6-49.0) 10/26/20 05:19 Plt Count 608 K/uL (152-406) H 10/26/20 05:19 PT 15.3 SECONDS (9.5-12.5) H 10/22/20 19:50 INR 1.33 10/22/20 19:50 APTT 30.8 SECONDS (24.3-36.9) 10/22/20 19:50 Sodium 140 mmol/L (136-145) 10/26/20 05:19 Potassium 4.7 mmol/L (3.5-5.1) 10/26/20 05:19 BUN 18 mg/dL (7-18) 10/26/20 05:19 Creatinine 0.83 mg/dL (0.55-1.3) 10/26/20 05:19 Glucose 168 mg/dL (74-106) H 10/26/20 05:19 Magnesium 2.0 mg/dL (1.8-2.4) 10/25/20 05:38 Total Bilirubin 0.4 mg/dL (0.2-1.0) 10/26/20 05:19 AST 92 U/L (15-37) H 10/26/20 05:19 ALT 306 U/L (12-78) H* 10/26/20 05:19 Alkaline Phosphatase 160 U/L (45-117) H 10/26/20 05:19 Lipase 169 U/L (73-393) 10/22/20 19:50 Home Medications: Ascorbic Acid [Vitamin C*] 500 mg PO QID 30 Days #120 tablet 10/26/20 Benzonatate [Tessalon Perle*] 100 mg PO TID PRN 5 Days #15 cap 10/26/20 Cholecalciferol (Vitamin D3) [Vitamin D 1000 Iu Tab*] 4,000 unit PO DAILY 30 Days #120 tab 10/26/20 Rivaroxaban [Xarelto] 20 mg PO DAILY AT SUPPER 30 Days #30 tablet 10/26/20 Thiamine HCl [Vitamin B-1*] 200 mg PO DAILY 30 Days #60 tablet 10/26/20 Zinc Sulfate [Zinc Sulfate*] 220 mg PO DAILY 30 Days #30 cap 10/26/20 predniSONE [Deltasone] 20 mg PO SEECOM 14 Days #21 tab 10/26/20 New Medications: predniSONE [Deltasone] 20 mg PO SEECOM 14 Days #21 tab Benzonatate [Tessalon Perle*] 100 mg PO TID PRN 5 Days #15 cap PRN Reason: Cough Thiamine HCl [Vitamin B-1*] 200 mg PO DAILY 30 Days #60 tablet Ascorbic Acid [Vitamin C*] 500 mg PO QID 30 Days #120 tablet Cholecalciferol (Vitamin D3) [Vitamin D 1000 Iu Tab*] 4,000 unit PO DAILY 30 Days #120 tab Rivaroxaban [Xarelto] 20 mg PO DAILY AT SUPPER 30 Days #30 tablet Zinc Sulfate [Zinc Sulfate*] 220 mg PO DAILY 30 Days #30 cap Physician Discharge Instructions: You are found to have moderatesevere COVID-19 pneumonia. You had significant improvement with steroids and vitamin supplementation. You are discharged home to continue steroids, vitamin supplementation, and oxygen. Recommend taking a daily blood thinnerXarelto, if affordable. Take this for 1 month. If too expensive, recommend taking 325 mg aspirin once a day for 1 month. Your liver enzymes or noted to be slightly high. This could be due to the COVID-19 pneumonia or from drinking alcohol, or combination. Recommend getting blood work to check your levels in 2-3 days. Follow-up with Dr. Newton for these results and from this hospitalization in approximately 1 week. Please call his office tomorrow to schedule the appointment. Diet: Regular Activity: Ad king Followup: NONE,NONE [Primary Care Provider] - Time spent managing pt's care (in minutes): 40
== END 2020-10-26 15:45 | disposition home or self-care (01) | DRG 177 ==
LOC: ER 15:01 → ERHOLD 20:59
PROVIDERS: ADMIT Hospitalist; ATTEND Hospitalist
DX: U07.1 COVID-19 (principal); J12.82 Pneumonia due to coronavirus disease 2019; J96.01 Acute respiratory failure with hypoxia; K76.0 Fatty (change of) liver, not elsewhere classified; R79.89 Other specified abnormal findings of blood chemistry; Z79.52 Long term (current) use of systemic steroids; Z79.01 Long term (current) use of anticoagulants; Z79.899 Other long term (current) drug therapy
CPT/HCPCS: 36415; 71045; 71275; 76705; 80048; 80053; 80076; 82728; 83605; 83690; 83735; 84145; 84484; 85025; 85027; 85379; 85610; 85730; 86140; 87040; 93005; 94760; 96374; 99284; J1650; J2920; J2930; Q9967